=== PATIENT | male | born 1970 | race Caucasian/White ===

== ENCOUNTER → 2019-06-03 | Outpatient (CLI) | payer OTHER ==
[~2019-06-03] MED LIST: 0.9 % SODIUM CHLORIDE 10 ML VIAL ONE; ASPI-630 PO; BUPIVACAINE MPF 0.25% 10 ML VIAL. ONE; DEXAMETHASONE SOD PHOS 10 MG/ML VIAL ONE; DEXT350P PO; DICL100G18 TP; FISH12002 PO; FLUT9.9S NS; GARL1TAB2 PO; IOHEXOL 300 MG/ML 50 ML VIAL. ONE; LIDOCAINE 1% PF 30 ML VIAL. ONE
[2019-06-03 11:03] VITALS: BP 148/90
== END ==
LOC: SURG 10:10
PROVIDERS: ATTEND Anesthesiology
DX: M54.16 Radiculopathy, lumbar region (principal); I10 Essential (primary) hypertension; K21.9 Gastro-esophageal reflux disease without esophagitis; Z87.891 Personal history of nicotine dependence; Z72.89 Other problems related to lifestyle; Z87.39 Personal history of other diseases of the musculoskeletal system and connective tissue; Z79.82 Long term (current) use of aspirin; Z98.890 Other specified postprocedural states
CPT/HCPCS: 64483; 64484; J1100; J2001; J3490; Q9967

== ENCOUNTER → 2019-07-11 | Outpatient (CLI) | payer OTHER ==
[~2019-07-11] MED LIST changes: +ATOR10TA60 PO; -BUPIVACAINE MPF 0.25% 10 ML VIAL. ONE; +CETI10TA24 PO; -DEXAMETHASONE SOD PHOS 10 MG/ML VIAL ONE; +DICY10CA3 PO; +GABA-586 PO; +LISI30TA4 PO; +METO-239 PO; +MIRT30TA3 PO; +PRAZ2CAP2 PO; +RANI-376 PO; +SERT100T PO; +VITA1TAB19 PO; +methylPREDNISolone ACETATE 80 MG/ML VIAL. ONE
[2019-07-11 11:59] VITALS: BP 142/88
== END ==
LOC: SURG 09:51
PROVIDERS: ATTEND Anesthesiology Pain Medicine
DX: M54.16 Radiculopathy, lumbar region (principal); G47.30 Sleep apnea, unspecified; K44.9 Diaphragmatic hernia without obstruction or gangrene; F17.210 Nicotine dependence, cigarettes, uncomplicated; I10 Essential (primary) hypertension; Z87.39 Personal history of other diseases of the musculoskeletal system and connective tissue; Z72.89 Other problems related to lifestyle; Z98.890 Other specified postprocedural states
CPT/HCPCS: 62323; J1040; J2001; Q9967